=== PATIENT | male | born 1960 | race Caucasian/White ===

== ENCOUNTER 2017-09-28 23:34 | Emergency (ER) | payer OTHER ==
[~2017-09-28] VITALS: Ht 190.5 cm; Wt 127.9 kg
[2017-09-28 23:55] LABS: HEMATOCRIT 33.8 % (38.0-50.0); HEMOGLOBIN 12.3 G/DL (12.5-16.6); MCHC 36.4 G/DL (30.0-36.0); PLATELET COUNT 194 K/uL (156-360); RBC DIS.WIDTH-CV 13.4 % (11.8-14.6); RBC DIS.WIDTH-SD 42.9 % (39-53); RED BLOOD COUNT 3.84 M/uL (4.00-5.50); WHITE BLOOD COUNT 5.6 K/uL (4.1-10.2)
[2017-09-29 00:06] LABS: ALBUMIN 4.5 g/dL (3.2-4.8); CHLORIDE 109 mEq/L (99-109); SODIUM 144 mEq/L (136-147)
[2017-09-29 00:08] LABS: GLUCOSE 106 mg/dL (70-99)
[2017-09-29 00:09] LABS: TOTAL PROTEIN 7.2 g/dL (6.4-8.3)
[2017-09-29 00:10] LABS: TOTAL BILIRUBIN 0.6 mg/dL (0.0-1.0)
[2017-09-29 00:12] LABS: ALKALINE PHOSPHATASE 62 IU/L (3-129); CREATININE 1.4 mg/dL (0.6-1.3); GFR ESTIMATE (CALCULATED) 56 mL/min/ (58.99-99999); SERUM ETHYL ALCOHOL < 10 mg/dL
[2017-09-29 00:13] LABS: UREA NITROGEN (BUN) 28 mg/dL (9-23)
[2017-09-29 00:14] LABS: AST (GOT) 19 IU/L (2-34)
[2017-09-29 00:15] LABS: ALT (GPT) 27 IU/L (3-49)
[2017-09-29 01:38] VITALS: BP 135/89
== END 2017-09-29 01:38 | disposition home or self-care (01) ==
LOC: EME → EDBD 23:34 → EME 09-29 01:38
PROVIDERS: Emergency Medicine
DX: S16.1XXA Strain of muscle, fascia and tendon at neck level, initial encounter (principal); V49.40XA Driver injured in collision with unspecified motor vehicles in traffic accident, initial encounter; Y92.410 Unspecified street and highway as the place of occurrence of the external cause; I10 Essential (primary) hypertension; M79.7 Fibromyalgia; E78.5 Hyperlipidemia, unspecified
CPT/HCPCS: 72125; 80053; 85027; 99281; 99284; G0480